=== PATIENT | male | born 1945 | race Caucasian/White ===

== ENCOUNTER 2021-11-09 20:22 | Emergency (ER) | payer MEDICARE ==
[~2021-11-09] VITALS: Ht 177.8 cm; Wt 96.2 kg
[2021-11-09] MEDS ORDERED: MECLIZINE HCL12.5 MG PO (23:04)
--- NOTE | 2021-11-11 15:16 | EKG ---
[facility] [address] [facility] [place], [place] [address] Signed Normal sinus rhythm Normal ECG No previous ECGs available Confirmed by COLIN RIVERA MD ([id number] on 11/11/2021 3:16:43 PM Electronically Signed By: COLIN RIVERA MD 11/11/21 1516 PATIENT NAME: FRANCINE GONG Electrocardiogram DATE OF : 47 PHYSICIAN: COLIN RIVERA MD REPORT #: [id number] REPORT IS CONFIDENTIAL AND NOT TO BE RELEASED WITHOUT AUTHORIZATION
== END 2021-11-09 23:59 | disposition home or self-care (01) ==
LOC: ED 20:22
DX: R42 Dizziness and giddiness (principal); I10 Essential (primary) hypertension; E11.9 Type 2 diabetes mellitus without complications
CPT/HCPCS: 36415; 70450; 70496; 70498; 80048; 81001; 84484; 85025; 93005; 93010; 99284-25; A9270; Q9967